=== PATIENT | male | born 1990 | race Caucasian/White ===

== ENCOUNTER 2018-11-15 12:43 | Emergency (ER) | payer SELFPAY ==
[~2018-11-15] VITALS: Ht 154.9 cm; Wt 63.0 kg
[2018-11-15 13:14] VITALS: BP 104/45
== END 2018-11-15 21:00 | disposition left against medical advice (07) ==
LOC: ER 14:10
DX: R51 Headache (principal); R11.10 Vomiting, unspecified; R42 Dizziness and giddiness; Z53.21 Procedure and treatment not carried out due to patient leaving prior to being seen by health care provider